=== PATIENT | female | born 1965 | race Caucasian/White ===

== ENCOUNTER 2023-01-06 01:49 | Emergency (ER) | payer BC ==
[~2023-01-06] VITALS: Ht 157.5 cm; Wt 102.5 kg
[2023-01-06 02:11] VITALS: BP_SYST 158
[2023-01-06] MEDS ORDERED: AMOX500C2 PO (02:28)
[2023-01-06] MEDS ORDERED: KETOROLAC TROMETHAMINE 60 MG/2 ML VIAL IM ONE (02:30)
[2023-01-06] MEDS ORDERED: LIDOCAINE VISCOUS 2%, 15 ML UDC MM ONE (02:30)
[2023-01-06] MEDS ORDERED: GUAI-723 PO (02:32)
[2023-01-06] MEDS ORDERED: IBUP-1969 PO (02:32)
[2023-01-06] MEDS ORDERED: LIDO15SO6 MM (02:32)
[2023-01-06] MEDS ORDERED: TRAM50TA2 PO (03:01)
[2023-01-06 03:09] VITALS: BP_SYST 155
== END 2023-01-06 03:06 | disposition home or self-care (01) ==
LOC: SED 01:49
DX: R59.1 Generalized enlarged lymph nodes (principal); M54.2 Cervicalgia; J02.9 Acute pharyngitis, unspecified; Z88.1 Allergy status to other antibiotic agents; Z79.899 Other long term (current) drug therapy
CPT/HCPCS: 99283; 96372; J2001; J1885